=== PATIENT | female | born 1965 | race African-American/Black ===

== ENCOUNTER 2016-05-23 00:46 | Emergency (ER) | payer BC ==
[2016-05-23] MEDS ORDERED: SODIUM CHLORIDE 0.9% 10 ML FLUSH FLUSH PRN (01:09)
--- NOTE | 2016-05-23 01:44 | DIRPT ---
CLINICAL DATA: Acute onset of cough for several days. Initial encounter. EXAM: CHEST 2 VIEW COMPARISON: Chest radiograph performed 03/18/2015 FINDINGS: The lungs are well-aerated. Mild peribronchial thickening is noted. There is no evidence of focal opacification, pleural effusion or pneumothorax. The heart is normal in size; the mediastinal contour is within normal limits. No acute osseous abnormalities are seen. IMPRESSION: Mild peribronchial thickening noted. Lungs otherwise clear. Electronically Signed By: Calos Briones M.D. On: 05/23/2016 01:42
[2016-05-23] MEDS ORDERED: AMOXICILLIN 500 MG CAP PO ONE (01:52)
[2016-05-23] MEDS ORDERED: Albuterol/Ipratropium Neb 3 ML NEB NEB ONE (01:52)
[2016-05-23 02:04] LABS: BLOOD UREA NITROGEN 10 MG/DL (7-17); CALCIUM 9.1 MG/DL (8.4-10.2); CALCULATED OSMOLALITY 272 MOs/Kg (270-290); CHLORIDE 99 mEq/L (98-107); GLUCOSE 304 MG/DL (70-99); SODIUM LEVEL 136 mEq/L (137-146); TOTAL PROTEIN 7.1 G/DL (6.3-8.2)
[2016-05-23 02:09] VITALS: TEMP 98.1; BMI 23.2
[2016-05-23 02:09] LABS: AUTOMATED EOSINOPHIL 3.2 % (0-5); AUTOMATED LYMPH 11.5 % (17-44); AUTOMATED MONOCYTE 14.9 % (3-10); AUTOMATED NEUTROPHIL 69.4 % (45-76); MPV 9.2 fL (7.4-10.4)
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
[2016-05-23 02:30] LABS: ALLEN'S TEST PASS; TCO2 23.2 MMOL/L (23-27)
[2016-05-23 02:31] LABS: ABG Draw Site Right Radial
[2016-05-23 03:18] VITALS: BP 119/75; PULSE 108
== END 2016-05-23 03:17 | disposition home or self-care (01) ==
LOC: ED 00:46
DX: J18.9 Pneumonia, unspecified organism (principal)
CPT/HCPCS: 36415; 36600; 71020; 80053; 82803; 84484; 85025; 85610; 85730; 93005; 94640; 99284; J3490; J7620